=== PATIENT | female | born 1985 | race Two or more races ===

== ENCOUNTER 2018-08-22 07:15 | Inpatient (IN) | payer BC ==
[~2018-08-22 07:15] MED LIST: CITRIC ACID/SODIUM CITRATE 30 ML UNIT-DOSE CUP PO ONE; ELECTROLYTE-148 SOLN 1,000 ML IV SCH
[2018-08-22] MEDS ORDERED: ELECTROLYTE-148 SOLN 1,000 ML IV SCH (08:10)
[2018-08-22 08:11] VITALS: BMI 29.1
--- NOTE | 2018-08-22 09:03 | HP ---
Past Medical History - Admission History of Present Illness: Here for repeat section. uncomplicated. no VB/LOF/Ctx. + FM. H/O previous c section, declined TOLAC. History Source: Patient, Medical Record Limitations to Obtaining History: No Limitations - Past Medical History ENDBAND SIZER: No: Migraine Cardiovascular: No: AFIB, HTN Pulmonary: No: Asthma, COPD Gastrointestinal: No: GERD Hepatobiliary: No: Hepatitis B, Hepatitis C Renal/: No: BPH, UTI Reproductive: No: Ectopic , Fibroids, PID ...: 3 ...Para: 1 ...Term: 1 ...: 0 ...Spon : 0 ...Induced : 1 ...Multiple Gestation: 0 ...LMP: 11/04/17 ... Weeks Gestation by Dates: 41.3 ...EDC by Dates: 08/12/18 ...EDC by Sono: 08/26/18 Infectious Disease: No: HIV, MRSA, STD's Psych: No: Anxiety, Bipolar, Depression - Past Surgical History Past Surgical History: Yes: Hx Myomectomy: No Hx Transabdominal Cerclage: No - Smoking History Smoking history: Never smoked Have you smoked in the past 12 months: No - Alcohol/Substance Use Hx Alcohol Use: No - Social History ADL: Independent History of Recent Travel: No Home Medications - Allergies Allergies/Adverse Reactions: Allergies Allergy/AdvReac Type Severity Reaction Status Date / Time No Known Allergies Allergy Verified 06/02/16 14:44 - Home Medications Home Medications: Ambulatory Orders Oxycodone HCl/Acetaminophen [Percocet 5-325 mg Tablet -] 1 tab PO Q4H #30 tablet MDD 6 06/04/16 Review of Systems - Review of Systems Constitutional: reports: No Symptoms Eyes: reports: No Symptoms HENT: reports: No Symptoms Neck: reports: No Symptoms Cardiovascular: reports: No Symptoms Respiratory: reports: No Symptoms Gastrointestinal: reports: No Symptoms Genitourinary: reports: No Symptoms Breasts: reports: No Symptoms Reported Musculoskeletal: reports: No Symptoms Integumentary: reports: No Symptoms Neurological: reports: No Symptoms Endocrine: reports: No Symptoms Hematology/Lymphatic: reports: No Symptoms Psychiatric: reports: No Symptoms Physical Exam - Maternity Vital Signs: Vital Signs Temperature 98.4 F 08/22/18 07:50 Pulse Rate 58 L 10/02/18 07:50 Respiratory Rate 18 08/22/18 07:50 Blood Pressure 113/72 08/22/18 07:50 O2 Sat by Pulse Oximetry (%) Constitutional: Yes: Well Nourished, No Distress, Calm Eyes: Yes: Conjunctiva Clear, EOM Intact HENT: Yes: Atraumatic, Normocephalic Neck: Yes: Supple, Trachea Midline Cardiovascular: Yes: Regular Rate and Rhythm Lungs: Clear to auscultation - Abdominal Exam/OB Fundal Height: 39 Number of Fetuses: Single Presentation: Vertex Contractions: No Category: I Accelerations: Uniform Decelerations: None - Vaginal Exam/OB Vaginal Bleediing: No Amniotic Membrane Status: Intact Presentation: Vertex/Position - Physical Exam Psychiatric: Yes: Alert, Oriented Hemorrhage Risk Assessment - Risk Factors Medium Risk Factors: Yes: Prior , uterine surgery,or multiple laparotomies Risk Score: 1 Risk Level: Medium Risk Problem List - Problems (1) History of delivery Code(s): Z98.891 - HISTORY OF UTERINE SCAR FROM PREVIOUS SURGERY (2) Term Code(s): Z34.80 - ENCOUNTER FOR SUPRVSN OF NORMAL , UNSP TRIMESTER Assessment/Plan 33 y/o with h/o prior delivery, declines TOLAC, for repeat AFVSS NPO SCDs Coleman catheter routine care
[2018-08-22] MEDS ORDERED: morphine SULFATE/Preservative Free 0.5 MG/ML (1cc Syringe) ONE (09:07)
[2018-08-22] MEDS ORDERED: TUBERCULIN PPD 5 TU/0.1ML SYRINGE (IN PATIENT USE ONLY) ID ONE (09:15)
[2018-08-22] MEDS ORDERED: IBUPROFEN 800 MG/8 ML IJ IVPB PRN (09:19)
[2018-08-22] MEDS ORDERED: oxyCODONE HCL 5 MG TABLET PO PRN (09:19)
[2018-08-22] MEDS ORDERED: METHYLERGONOVINE MALEATE 0.2 MG/1 ML AMP IM PRN (09:19)
[2018-08-22] MEDS ORDERED: SENNOSIDES/DOCUSATE COMBO (SENNA PLUS) TABLET (UD) PO PRN (09:19)
[2018-08-22] MEDS ORDERED: ceFAZolin SODIUM 1 GM VIAL ONE (09:38)
--- NOTE | 2018-08-22 10:13 | OP ---
Operative Note - Note: Operative Date: 08/22/18 (dictation [id number]) Pre-Operative Diagnosis: prior delivery, declined TOLAC Operation: repeat low transverse section Findings: normal b/l tubes/ovaries live female Post-Operative Diagnosis: Same as Pre-op Surgeon: Katherine Matthews Senior Qualitative Researcher: Luis Hurley Anesthesiologist/HEALTH CONSULTANT: Angel Rivera Anesthesia: Spinal Specimens Removed: placenta Estimated Blood Loss (mls): 600 Operative Report Dictated: Yes
[2018-08-22] MEDS ORDERED: OXYTOCIN 10 UNITS/ML VIAL ONE (10:19)
[2018-08-22] MEDS ORDERED: OXYTOCIN 20 UNITS in 0.9% NS 20 UNIT/1,000 ML INFUS.BAG IV ONE ×2 (10:30→13:53)
[2018-08-22] MEDS: OXYTOCIN 20 UNITS in 0.9% NS 20 UNIT/1,000 ML INFUS.BAG IV SCH ×3 (11:00→21:31)
--- NOTE | 2018-08-22 11:11 | OP ---
DATE OF OPERATION: 08/22/2018 PREOPERATIVE DIAGNOSIS: Prior delivery, declined trial of labor after . POSTOPERATIVE DIAGNOSIS: Prior delivery, declined trial of labor after . PROCEDURE: Repeat low transverse section. SURGEON: Katherine Matthews MD OFFAL WORKER: CHEYENNE Kasper ANESTHESIA: Spinal. ANESTHESIOLOGIST: Angel Rivera MD ESTIMATED BLOOD LOSS: 600 mL. SPECIMENS: Placenta. COMPLICATIONS: None. COUNTS: Sponge, needle, and instrument counts correct. DISPOSITION: Stable to PACU. BRIEF HISTORY AND PROCEDURE: Patient is a 33-year-old para 1 female who has a history of a prior delivery for a breech presentation. The patient declined trial of labor. Patient was admitted to [facility] at 39 weeks and 3 days with plan for a repeat delivery. Consents were signed upon admission. The patient was taken back to the operating room where she was given spinal anesthesia and placed in the dorsal supine position. A Coleman catheter was placed under sterile conditions. She was prepped and draped in the usual sterile fashion, and a hard time-out was performed. A Pfannenstiel skin incision was created in the skin with a scalpel and carried to the underlying layer rectus fascia with the Bovie. The fascia was incised on either side of the midline, and the fascial incision was carried in superolateral direction sharply. The fascia was tented upward and dissected off the underlying layer of rectus muscle sharply, and the musculature was identified in the midline and laterally, sharply. The peritoneum was entered sharply and dissected to allow for adequate room for delivery. A bladder blade was inserted to protect the bladder. A lower uterine segment incision was created transversely and carried in the superolateral direction, and the infant was delivered from the VENANCIO position without difficulty. Anterior and posterior shoulders were delivered with ease along with the remainder of the . The cord was clamped twice and cut in between. After 60 seconds of delayed cord clamping, then, the baby was assessed by the buhr dresser who was present for the entire delivery. The placenta was delivered intact and was manually extracted. The uterus was exteriorized, inspected, and cleared of all amniotic membrane and debris with a dry lap sponge. The hysterotomy was reapproximated in a double-layer closure using 1 Vicryl in a running locked fashion, 2nd layer with 0 Biosyn suture in a running locked fashion. Excellent hemostasis was achieved. The posterior cul-se-sac was suctioned. Bilateral tubes and ovaries were noted to be normal. The uterus was placed back in the abdomen. Bilateral gutters were inspected and cleared of all debris. The incision was noted to be hemostatic, and the peritoneum was then reapproximated using 2-0 chromic in a running fashion. Then, the musculature was reapproximated using 2-0 chromic in a running fashion. The fascial layer was reapproximated using 1 Vicryl in a running fashion. The subcutaneous tissue was irrigated and any bleeding was cauterized with the Bovie device. The subcutaneous tissue was reapproximated in a running fashion using 1 Vicryl suture, and 3-0 Vicryl suture was used in a subcuticular fashion for the skin. Steri-Strips were applied. The patient tolerated the procedure well, was recovering in stable condition after the procedure at the time of this dictation. KATHERINE MATHTEWS DO /[id number]
[2018-08-22] MEDS ORDERED: IBUPROFEN 800 MG/8 ML IJ IVPB ONE (11:43)
[2018-08-23] MEDS: ACETAMINOPHEN 325 MG TABLET (FP) PO PRN ×3 (06:09→21:47)
[2018-08-23] MEDS: SIMETHICONE 80 MG TAB.CHEW (FP) PO PRN ×3 (06:09→21:46)
[2018-08-23] MEDS: IBUPROFEN 600 MG TABLET (FP) PO PRN ×3 (06:10→21:46)
[2018-08-23 08:44] LABS: BASO % 0.1 % (0-2.0); EOS % 0.6 % (0-4.5); HEMOGLOBIN 8.6 GM/dL (10.7-15.3); LYMPH % 8.2 % (8-40); MCH 26.6 pg (25.7-33.7); MEAN CELL VOLUME 83.3 fl (80-96); MEAN PLT VOLUME 9.5 fl (7.5-11.1); MONO % 6.4 % (3.8-10.2); NEUT % 84.7 % (42.8-82.8); PLATELET COUNT 178 K/MM3 (134-434); RBC 3.24 M/mm3 (3.60-5.2); RDW 15.5 % (11.6-15.6)
[2018-08-23] MEDS ORDERED: BISACODYL 10 MG SUPP.RECT RC PRN (09:19)
--- NOTE | 2018-08-23 10:21 | PN ---
Progress Note (short form) - Note Progress Note: Anesthesia post op note, POD#1 . S/P repeat , under spinal with duramorph. Pat seen and examined. VSS. No apparent post anesthesia complications. Signed off.
[2018-08-23] MEDS ORDERED: DIPHTH,PERTUSS(ACELL),TET 0.5 ML DISP.SYRIN IM ONE (16:30)
--- NOTE | 2018-08-23 18:41 | PATH ---
Surgical Pathology Report Patient Name: ANDRZEJ URBANO Med. Rec. #: [id number] /Age/Gender: 1985 (Age: 33) / F Account: [id number] Location: [facility] OBS/MUSIC REHABILITATION THERAPIST Taken: 08/22/2018 Received: 08/22/2018 Reported: 08/23/2018 Physicians: Katherine Matthews M.D. Specimen(s) Received PLACENTA Clinical History , 39.3 weeks x1 Final Diagnosis PLACENTA, SECTION: 527 G THIRD TRIMESTER PLACENTA WITH TRIVASCULAR UMBILICAL CORD AND UNREMARKABLE PLACENTAL MEMBRANES. Electronically Signed Ashlie Sanchez M.D. Gross Description The specimen is received fresh labeled "placenta" is a 527 gram, 17 x 16 x 2 cm. placenta with attached membranes and umbilical cord. The attached membranes are translucent and insert marginally. The umbilical cord measures 46 cm. in length and averages 1.5 cm in diameter. The cord inserts eccentrically, 7 cm to the nearest margin. No true knots or strictures are identified. Cut surface of the umbilical cord reveals 3 vessels. The surface is chau-blue with minimal fibrin deposition and appropriate caliber vessels. The maternal surface is red-brown with focal defects. Sectioning reveals red-brown, spongy parenchyma. No lesions are identified. Stamp Maker sections are submitted in three cassettes as follows: 1- membrane rolls and umbilical cord; 2-3- full thickness sections of placenta. MLSZ/08/22/2018 sanml/08/22/2018
[2018-08-24] MEDS: IBUPROFEN 600 MG TABLET (FP) PO PRN ×5 (02:25→21:51)
[2018-08-24] MEDS: SIMETHICONE 80 MG TAB.CHEW (FP) PO PRN ×5 (02:25→21:51)
[2018-08-24] MEDS: ACETAMINOPHEN 325 MG TABLET (FP) PO PRN ×3 (02:25→11:20)
--- NOTE | 2018-08-24 07:27 | PN ---
Post Progress Note - Subjective Subjective: Pt with some incisional pain otherwise no complaints. Tolerating diet, voiding , passing flatus, no other issues. Post Day: 2 Type of Delivery: Repeat C/S Vital Signs: Vital Signs Temperature 98.5 F 08/23/18 22:00 Pulse Rate 58 L 08/23/18 22:00 Respiratory Rate 18 08/23/18 22:00 Blood Pressure 116/79 08/23/18 22:00 O2 Sat by Pulse Oximetry (%) 98 08/22/18 12:00 Uterus: Yes: Fundus Firm Incision: Yes: Dressing dry and intact Lochia: Yes: Rubra Lochia, amount: Small Extremities: Yes: Calves non-tender. No: Edema Perineum: Yes: Intact Activity: Ambulating - Labs Labs: CBC WBC 12.0 K/mm3 (4.0-10.0) H 08/23/18 08:28 RBC 3.24 M/mm3 (3.60-5.2) L 08/23/18 08:28 Hgb 8.6 GM/dL (10.7-15.3) L 08/23/18 08:28 Hct 27.0 % (32.4-45.2) L 08/23/18 08:28 MCV 83.3 fl (80-96) 08/23/18 08:28 MCH 26.6 pg (25.7-33.7) 08/23/18 08:28 MCHC 32.0 g/dl (32.0-36.0) 08/23/18 08:28 RDW 15.5 % (11.6-15.6) 08/23/18 08:28 Plt Count 178 K/MM3 (134-434) D 08/23/18 08:28 MPV 9.5 fl (7.5-11.1) 08/23/18 08:28 Absolute Neuts (auto) 10.2 K/mm3 (1.5-8.0) H 08/23/18 08:28 Neutrophils % 84.7 % (42.8-82.8) H D 08/23/18 08:28 Lymphocytes % 8.2 % (8-40) D 08/23/18 08:28 Monocytes % 6.4 % (3.8-10.2) 08/23/18 08:28 Eosinophils % 0.6 % (0-4.5) 08/23/18 08:28 Basophils % 0.1 % (0-2.0) 08/23/18 08:28 Nucleated RBC % 0 % (0-0) 08/23/18 08:28 Problem List - Problems (1) History of delivery Code(s): Z98.891 - HISTORY OF UTERINE SCAR FROM PREVIOUS SURGERY (2) Term Code(s): Z34.80 - ENCOUNTER FOR SUPRVSN OF NORMAL , UNSP TRIMESTER (3) delivery delivered Code(s): O82 - ENCOUNTER FOR DELIVERY WITHOUT INDICATION Assessment/Plan 33 y/o POD#2 s/p repeat delivery AFVSS Hgb 8.6, continue PO Iron regular diet PO pain meds routine care
[2018-08-24] MEDS: oxyCODONE HCL 5 MG TABLET PO PRN ×2 (16:08→21:51)
[2018-08-25] MEDS: ACETAMINOPHEN 325 MG TABLET (FP) PO PRN ×3 (00:29→12:40)
[2018-08-25] MEDS: oxyCODONE HCL 5 MG TABLET PO PRN (00:30)
[2018-08-25] MEDS: SIMETHICONE 80 MG TAB.CHEW (FP) PO PRN (07:57)
[2018-08-25] MEDS: IBUPROFEN 600 MG TABLET (FP) PO PRN ×2 (07:57→12:39)
[2018-08-25 08:37] LABS: BASO % 0.2 % (0-2.0); EOS % 0.7 % (0-4.5); HEMATOCRIT 23.8 % (32.4-45.2); HEMOGLOBIN 7.7 GM/dL (10.7-15.3); LYMPH % 18.8 % (8-40); MCH 26.8 pg (25.7-33.7); MCHC 32.2 g/dl (32.0-36.0); MEAN CELL VOLUME 83.2 fl (80-96); MEAN PLT VOLUME 8.6 fl (7.5-11.1); MONO % 9.1 % (3.8-10.2); NEUT % 71.2 % (42.8-82.8); PLATELET COUNT 204 K/MM3 (134-434); RBC 2.86 M/mm3 (3.60-5.2); RDW 15.6 % (11.6-15.6); WHITE BLOOD COUNT 6.6 K/mm3 (4.0-10.0)
--- NOTE | 2018-08-25 10:55 | DS ---
Physical Exam-GAUGE CHECKER Vital Signs: Vital Signs Temperature 98.2 F 08/24/18 21:53 Pulse Rate 61 08/24/18 21:53 Respiratory Rate 18 08/24/18 21:53 Blood Pressure 118/66 08/24/18 21:53 O2 Sat by Pulse Oximetry (%) 99 08/24/18 21:53 Constitutional: Yes: Well Nourished, No Distress, Calm Eyes: Yes: Conjunctiva Clear, EOM Intact HENT: Yes: Atraumatic, Normocephalic Neck: Yes: Trachea Midline Cardiovascular: Yes: Regular Rate and Rhythm Respiratory: Yes: Regular Gastrointestinal: Yes: Soft ....Post : Yes: Uterus firm, Uterus non-tender Wound/Incision: Yes: Clean/Dry, Well Approximated Neurological: Yes: Alert, Oriented Psychiatric: Yes: Alert, Oriented Labs: CBC, BMP 08/25/18 07:50 Delivery - Delivery Section: Repeat, Low Flap Transverse Type of Anesthesia: Spinal Episiotomy/Laceration: None EBL (cc): 600 Delivery, Single - Stages of Labor Date of Delivery: 08/22/18 Time of Delivery: 09:42 Date Placenta Delivered: 09/09/18 Time Placenta Delivered: 09:43 Placenta: Yes: Manual Removal - Condition of Infant Electrical Mechanic/Dispatcher Clerk Present: Yes Name: Star Barajas Gender: Female Weight: 6 lb 10 oz Position: Left, OA Total Hours ROM (Hrs/Mins): 0/2 - 1 Minute Total Score: 9 5 Minutes Total Score: 9 - [place] Feeding Plan Initial Plan: Exclusive throughout hospitalization Discharge Summary Reason For Visit: REPEAT C SEC Current Active Problems delivery delivered (Acute) History of delivery (Acute) Term (Acute) Procedures: Principal: Repeat low transverse delivery Hospital Course: Pt admitted on 08/22/2018 for scheduled repeat section. Underwent normal procedure - see op note. Uncomplicated post op recovery, discharged home on post op day 3. Condition: Good - Instructions Disposition: HOME - Home Medications Comprehensive Discharge Medication List: Ambulatory Orders Oxycodone HCl/Acetaminophen [Percocet 5-325 mg Tablet -] 1 tab PO Q4H #30 tablet MDD 6 06/04/16
[2018-08-25 11:52] VITALS: BP 121/75; PULSE 63; TEMP 98
== END 2018-08-25 12:45 | disposition home or self-care (01) | DRG 788 ==
LOC: JLDR 07:15 → J3W 14:24
PROVIDERS: ADMIT Obstetrics & Gynecology; ATTEND Obstetrics & Gynecology
PROC: 10D00Z1 Extraction of Products of Conception, Low, Open Approach (ICD-10-PCS; principal; 2018-08-22)
DX: O34.211 Maternal care for low transverse scar from previous cesarean delivery (principal); Z37.0 Single live birth; Z3A.39 39 weeks gestation of pregnancy
CPT/HCPCS: 36415; 85025; 88307-TC; 90686; 90715; G0008

== ENCOUNTER 2022-04-10 22:13 | Emergency (ER) | payer BC, OTHER ==
[2022-04-10 22:16] VITALS: TEMP 99.6; BMI 29.1
[2022-04-10] MEDS ORDERED: SODIUM CHLORIDE 1,000 ML IV STA (22:55)
[2022-04-10 23:16] LABS: BASO % 0.1 % (0-2.0); EOS % 0.2 % (0-4.5); HEMATOCRIT 30.5 % (32.4-45.2); LYMPH % 2.4 % (8-40); MCH 25.9 pg (25.7-33.7); MCHC 32.7 g/dl (32.0-36.0); MEAN CELL VOLUME 79.1 fl (80-96); MEAN PLT VOLUME 9.3 fl (7.5-11.1); MONO % 8.8 % (3.8-10.2); NEUT % 88.5 % (42.8-82.8); PLATELET COUNT 152 10^3/uL (134-434); RBC 3.86 M/mm3 (3.60-5.2); RDW 20.8 % (11.6-15.6); WHITE BLOOD COUNT 8.5 K/mm3 (4.0-10.0)
[2022-04-10 23:17] LABS: URINE APPEARANCE CLEAR; URINE BILIRUBIN NEGATIVE (NEGATIVE); URINE COLOR YELLOW; URINE GLUCOSE (UA) NEGATIVE (NEGATIVE); URINE KETONE NEGATIVE (NEGATIVE); URINE LEUK ESTERASE NEGATIVE (NEGATIVE); URINE NITRITE NEGATIVE (NEGATIVE); URINE PROTEIN NEGATIVE (NEGATIVE); URINE UROBILINOGEN 0.2 mg/dL (0.2-1.0)
[2022-04-10 23:46] LABS: ALBUMIN 2.5 g/dl (3.4-5.0); BLOOD UREA NITROGEN 3.6 mg/dL (7-18); CALCIUM 8.7 mg/dL (8.5-10.1)
[2022-04-10 23:49] LABS: CREATININE 0.4 mg/dL (0.55-1.3); URIC ACID 3.8 mg/dL (2.6-7.2)
[2022-04-10 23:51] LABS: BILIRUBIN,TOTAL 0.3 mg/dL (0.2-1); TOT PROT 6.2 g/dl (6.4-8.2)
[2022-04-11 01:39] VITALS: BP 102/53; PULSE 89
== END 2022-04-11 01:43 | disposition home or self-care (01) ==
LOC: JER 22:13
PROC: 3E0337Z Introduction of Electrolytic and Water Balance Substance into Peripheral Vein, Percutaneous Approach (ICD-10-PCS; principal; 2022-04-10)
DX: O98.513 Other viral diseases complicating pregnancy, third trimester (principal); U07.1 COVID-19; R51.9 Headache, unspecified; Z3A.35 35 weeks gestation of pregnancy
CPT/HCPCS: 0241U-QW; 36415; 80053; 81003; 84550; 85025; 99284-25